=== PATIENT | female | born 1995 ===

== ENCOUNTER 2017-12-28 10:01 | Emergency (ER) | payer MEDICAID ==
[2017-12-28 10:10] VITALS: BMI 31.3
[2017-12-28 10:12] VITALS: RESP 18; TEMP 97.8
--- NOTE | 2017-12-28 10:23 | ED PDOC ---
Arrival/HPI - General Chief Complaint: Lower Extremity Problem/Injury Time Seen by Provider: 12/28/17 10:04 Historian: Patient - History of Present Illness Narrative History of Present Illness (Text): 12/28/17 10:20 22-year-old female presents today with right ankle pain status post injury yesterday. Patient states yesterday she twisted her ankle going up a hill. Patient complaining of pain over the lateral aspect of the ankle. Patient states she is ambulating on one crutch. Patient denies numbness weakness or tingling in the extremity. Denies calf tenderness. Denies proximal fibular tenderness. No medications have been taken for pain at home. No other complaints Past Medical History - Provider Review Nursing Documentation Reviewed: Yes - Travel History Have you recently traveled outside [place] w/in the past 3 mons?: No - Infectious Disease Hx of Infectious Diseases: None - Psychiatric Hx Substance Use: No - Anesthesia Hx Anesthesia: No Family/Social History - Physician Review Nursing Documentation Reviewed: Yes Family/Social History: Unknown Family HX Smoking Status: Current Some Days Smoker Hx Alcohol Use: Yes Frequency of alcohol use: Socially Hx Substance Use: No Allergies/Home Meds Allergies/Adverse Reactions: Allergies No Known Allergies Allergy (Verified 12/28/17 10:14) Review of Systems - Review of Systems Constitutional: absent: Fatigue, Fevers Respiratory: absent: SOB, Cough Cardiovascular: absent: Chest Pain, Palpitations Gastrointestinal: absent: Abdominal Pain, Nausea, Vomiting Musculoskeletal: Arthralgias. absent: Back Pain, Neck Pain Skin: absent: Rash, Pruritis Neurological: absent: Headache, Dizziness Psychiatric: absent: Anxiety, Depression Physical Exam Vital Signs Reviewed: Yes Vital Signs Temp Pulse Resp BP Pulse Ox 12/28/17 10:10 97.8 F 109 H 18 124/75 97 Temperature: Afebrile Blood Pressure: Normal Pulse: Tachycardic Respiratory Rate: Normal Appearance: Positive for: Well-Appearing, Non-Toxic, Comfortable Pain Distress: None Mental Status: Positive for: Alert and Oriented X 3 - Systems Exam Head: Present: Atraumatic Mouth: Present: Moist Mucous Membranes Neck: Present: Normal Range of Motion Respiratory/Chest: Present: Clear to Auscultation, Good Air Exchange. No: Respiratory Distress, Accessory Muscle Use Cardiovascular: Present: Regular Rate and Rhythm, Normal S1, S2. No: Murmurs Lower Extremity: Present: NORMAL PULSES, Normal ROM, Tenderness (right ankle; + ttp over lateral and medial malleolus; full rom of ankle with pain. no dorsal foot tenderness. no proximal fibular tenderness. no achilles tendon tenderness or void. ), Swelling, Neurovascularly Intact, Capillary Refill < 2 s, Other (Douglass test is negative.). No: CALF TENDERNESS, Erythema, Deformity, Temperature Abnormalties Neurological: Present: GCS=15, Speech Normal Skin: Present: Warm, Dry, Normal Color. No: Rashes Psychiatric: Present: Alert, Oriented x 3 Medical Decision Making ED Course and Treatment: 12/28/17 10:22 Patient nontoxic well-appearing in no distress with stable vital signs X-rays of the right ankle: FINDINGS: BONES: Normal. No fracture. JOINTS: Normal. No osteoarthritis. Ankle mortise maintained. Talar dome intact SOFT TISSUES: Extensive lateral soft tissue swelling. OTHER FINDINGS: None. IMPRESSION: No fracture. Lateral soft tissue swelling toradol IM Patient placed in aircast. pt has crutches for ambulation. I discussed all results in depth with the patient advised to followup with the orthopedist within the next 2 days. Advised return if symptoms worsen persist or new symptoms develop i advised the patient that although the xrays show no fracture; there is still a possibility for ligamentous or tendon injury the patient must see the orthopedist for further evaluation. Patient verbalizes understanding of discharge instructions and need for immediate followup. all aspects of this case were discussed the attending of record. Impression: Ankle pain Motrin every 6 hours as needed for pain Rest, ice, compression, elevation Use crutches for ambulation Followup with the orthopedist within the next 2 days Followup with primary care physician within the next 2 days Return if symptoms worsen persist or if new symptoms develop - RAD Interpretation Radiology Orders: 12/28/17 10:20 ANKLE RIGHT 3 VIEWS ROUTINE [RAD] Stat Disposition/Present on Arrival - Present on Arrival Any Indicators Present on Arrival: No History of DVT/PE: No History of Uncontrolled Diabetes: No Urinary Catheter: No History of Decub. Ulcer: No History Surgical Site Infection Following: None - Disposition Have Diagnosis and Disposition been Completed?: Yes Diagnosis: Ankle pain Disposition: HOME/ ROUTINE Disposition Time: 10:23 Patient Plan: Discharge Condition: GOOD Discharge Instructions (ExitCare): Ankle Sprain Additional Instructions: Motrin every 6 hours as needed for pain Rest, ice, compression, elevation Use crutches for ambulation Followup with the orthopedist within the next 2 days Followup with primary care physician within the next 2 days Return if symptoms worsen persist or if new symptoms develop Prescriptions: Ibuprofen [Motrin] 600 mg PO Q6H PRN #20 tab PRN Reason: pain/fever reduction Referrals: [facility] [Outside] - Follow up with primary [facility] [Outside] - Follow up with primary [facility] [place] [Outside] - Follow up with primary David Glass MD [Staff Provider] - Follow up with primary Chloe Oliveros MD [Medical Doctor] - Follow up with primary Forms: [facility] [facility] ([place]ian), WORK NOTE
--- NOTE | 2017-12-28 11:12 | RAD ---
Date of service: 12/28/2017 PROCEDURE: Right Ankle Radiographs. HISTORY: ankle pain COMPARISON: None FINDINGS: BONES: Normal. No fracture. JOINTS: Normal. No osteoarthritis. Ankle mortise maintained. Talar dome intact SOFT TISSUES: Extensive lateral soft tissue swelling. OTHER FINDINGS: None. IMPRESSION: No fracture. Lateral soft tissue swelling
[2017-12-28 11:52] VITALS: PULSE 76
[2017-12-28 11:53] VITALS: BP 120/73; O2SAT 99
== END 2017-12-28 11:55 | disposition home or self-care (01) ==
LOC: ED 10:01 → MERGE 10:01 → ED 11:55
DX: M25.571 Pain in right ankle and joints of right foot (principal)
CPT/HCPCS: 73610; 96372; 99283; J1885